=== PATIENT | male | born 1960 | race African-American/Black ===

== ENCOUNTER 2018-12-24 22:47 | Emergency (ER) | payer SELFPAY ==
[~2018-12-24] VITALS: Ht 185.4 cm; Wt 112.5 kg
[2018-12-24 23:32] VITALS: BP 155/101
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
[2018-12-24] MEDS ORDERED: LIDODERM700 M1 TOPIC (23:44)
[2018-12-24] MEDS ORDERED: ROBAXIN-750750 MG PO (23:44)
[2018-12-24] MEDS ORDERED: IBUPROFEN600 MG ORAL (23:44)
[2018-12-24 23:55] VITALS: BP 155/101
--- NOTE | 2018-12-24 23:55 | NUR ---
ER Nurse Note: All orders completed per ERMD orders. Pt seen, treated, medically cleared for discharge by ERMD. Discharge instructions and prescriptions given with repeat verbazliaion by pt. Instructed pt to follow up with primary care provider. Pt a&ox4, VSS, no signs of distress. ID band removed. Pt left with all belongings with steady gait via own transportation.
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
== END 2018-12-24 23:55 | disposition home or self-care (01) ==
LOC: EMR 23:48
DX: S16.1XXA Strain of muscle, fascia and tendon at neck level, initial encounter (principal); V43.52XA Car driver injured in collision with other type car in traffic accident, initial encounter; Y92.410 Unspecified street and highway as the place of occurrence of the external cause; I10 Essential (primary) hypertension
CPT/HCPCS: 99283